=== PATIENT | male | born 2000 | race Two or more races ===

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

== ENCOUNTER 2023-11-20 19:32 | Emergency (ER) | payer MEDICAID ==
[~2023-11-20] VITALS: Ht 182.9 cm; Wt 106.6 kg
[2023-11-20 21:56] VITALS: BP 133/72; PULSE 77; RESP 16; TEMP 97.6; O2SAT 99
[2023-11-20] MEDS ORDERED: IBUP1TAB4 PO (22:07)
== END 2023-11-20 23:45 | disposition home or self-care (01) ==
LOC: ER 19:32 → EDBD 19:32 → ER 23:45
DX: S63.501A Unspecified sprain of right wrist, initial encounter (principal); S60.211A Contusion of right wrist, initial encounter; F12.90 Cannabis use, unspecified, uncomplicated; Z79.1 Long term (current) use of non-steroidal anti-inflammatories (NSAID); V89.2XXA Person injured in unspecified motor-vehicle accident, traffic, initial encounter; Y93.89 Activity, other specified; Y92.89 Other specified places as the place of occurrence of the external cause; Y99.8 Other external cause status
CPT/HCPCS: 29125; 73110; 73130

== ENCOUNTER 2024-04-06 15:36 | Emergency (ER) | payer MEDICAID, OTHER ==
[~2024-04-06] VITALS: Ht 182.9 cm; Wt 103.7 kg
[~2024-04-06 15:36] MED LIST: IBUP1TAB4 PO
--- NOTE | 2024-04-06 16:18 | ED.PDOC ---
History of Present Illness HPI Comments 23 y/o M presents with c/o puncture bite wound to right hand with associated pain, today. Patient endorses on being attacked and bitten by another person's dog, earlier, today. He comments on both being unsure of the vaccination status of the animal or how many years has it been since he last received a tetanus shot. Patient denies having any numbness, tingling, arm weakness, fever, chills, or other associated symptoms or modifiers at this time. Chief Complaint: Animal Bite Time Seen by MD: 16:00 Primary Care Provider: DR. TERRY Reviewed Notes: Nurses Notes, Medications, Allergies Allergies: Coded Allergies: NO KNOWN ALLERGIES (Unverified , 09/17/18) Home Meds Active Scripts Ibuprofen Micronized (Ibuprofen) 400 Mg Tab, 400 MG PO Q6HPRN, #30 TAB 0 Refills Prov:MASON DHALIWAL 11/20/23 Information Source: Patient Mode of Arrival: Ambulatory Severity: Moderate Timing: Hours Duration: Since onset Prehospital treatment: None Past Medical History Past Medical History (Other): obesity Surgical History: Denies all surgeries Family History Family History: Unknown Social History Smoker: Non-Smoker Alcohol: Denies ETOH Use Drugs: Marijuana Lives In: Home Musculoskeletal: reports: others (right hand pain secondary to puncture bite wound ) Integumetry: reports: wounds (right hand puncture bite wound ) All Other Systems: Reviewed and Negative (negative unless otherwise stated above or in HPI) Physical Exam General Appearance: No Apparent Distress, Obese HEENT: Normal ENT Inspection, Pharynx Normal, TMs Normal Neck: Full Range of Motion, Non-Tender, Normal, Normal Inspection Respiratory: Chest Non-Tender, Lungs Clear, No Accessory Muscle Use, No Respiratory Distress, Normal Breath Sounds Cardiovascular: No Edema, No JVD, No Murmur, No Gallop, Normal Peripheral Pulses, Regular Rate/Rhythm Breast Exam: Deferred Gastrointestinal: No Organomegaly, Non Tender, No Pulsatile Mass, Normal Bowel Sounds, Soft Genitalia: Deferred Pelvic: Deferred Rectal: Deferred Extremities: No calf tenderness, Normal capillary refill, Normal inspection, Normal range of motion, Non-tender, No pedal edema, Other (ROM and neurovascular system intact in right hand ) Musculoskeletal : Apperance: Normal Neurologic: Alert, rocket engine tester II-XII nml as Tested, No Motor Deficits, Normal Affect, Normal Mood, No Sensory Deficits Cerebellar Function: Normal Reflexes: Normal Skin: Dry, Normal Color, Warm, Wounds (puncture bite wound to the dorsal surface of right hand) Lymphatic: No Adenopathy Was a procedure done? Was a procedure done?: No Differential Dx Considerations may include: puncture bite wound X-Ray, Labs, Meds, VS Vital Signs Date Time Temp Pulse Resp B/P (MAP) Pulse Ox O2 Delivery O2 Flow Rate FiO2 04/06/24 15:55 98.7 74 18 147/98 (114) 99 Current Medications Medications (Trade) Dose Ordered Sig/Andrew Route Start Time Stop Time Status Last Admin Diphtheria/ Tetanus/Acell Pertussis (Boostrix T-Dap) 0.5 ml ONCE ONCE IM 04/06/24 16:30 04/06/24 16:31 DC 04/06/24 16:51 Time of 1ST Reevaluation: 16:30 Reevaluation 1ST: Unchanged Patient Education/Counseling: Diagnosis, Treatment Family Education/Counseling: No Family Present Departure 1 Departure Time of Disposition: 17:02 Impression: Primary Impression: Dog bite of dorsum of hand Disposition: 01 HOME / SELF CARE / HOMELESS Condition: Stable e-Prescriptions Amoxicillin & Pot Clavulanate (AUGMENTIN TABLET) 875 Mg Tb 875 MG PO BID for 7 Days, #14 TAB Prov: LYNDSEY CARIAS MD 04/06/24 Critical Care Note Critical Care Time?: No Stability Stability form required: No Heart Score Heart Score: Heart Score Response (Comments) Value History N/A 0 EKG N/A 0 Age N/A 0 Risk Factors N/A 0 Troponin N/A 0 Total 0 I personally scribed for LYNDSEY CARIAS MD ([email or web address]) on 04/06/24 at 16:18. Electronically submitted by Benigno Hays ([email or web address]). LYNDSEY CARIAS MD Apr 06, 2024 16:18
--- NOTE | 2024-04-06 16:48 | DVH ---
CLINICAL INFORMATION: 23 years old, Male; dog bite. TECHNIQUE: 3 views of the right hand were obtained. COMPARISON: XY R HAND 3 VIEW XRAY on DOS: 11/20/23 FINDINGS: No acute fracture or dislocation. No significant arthropathy. Adjacent soft tissues are unr emarkable. No radiopaque foreign body. IMPRESSION: No evidence of acute bony abnormality or radiopaque foreign body.
[2024-04-06] MEDS: TETANUS-DIPTH-ACEL PERTUSSIS 0.5ML SYR Tdap IM ONE (16:51)
[2024-04-06] MEDS ORDERED: AUG875T PO (17:03)
[2024-04-06 17:43] VITALS: BP 154/92; PULSE 76; RESP 16; TEMP 98.7; O2SAT 98
== END 2024-04-06 17:45 | disposition home or self-care (01) ==
LOC: ER 15:36
DX: S61.451A Open bite of right hand, initial encounter (principal); E66.9 Obesity, unspecified; W54.0XXA Bitten by dog, initial encounter; Y93.89 Activity, other specified; Y92.89 Other specified places as the place of occurrence of the external cause; Y99.8 Other external cause status
CPT/HCPCS: 73120; 90471; 90715

== ENCOUNTER 2024-08-12 14:12 | Emergency (ER) | payer MEDICAID ==
[~2024-08-12] VITALS: Ht 182.9 cm; Wt 107.9 kg
[~2024-08-12 14:12] MED LIST changes: +AUG875T PO
--- NOTE | 2024-08-12 15:40 | ED.PDOC ---
History of Present Illness HPI Comments 23 year old male presents to the ED with a chief compliant of RT sided facial numbness onset 2 days. Patient states he began experiencing tongue numbness 2 days ago as well as RT sided facial numbness. He woke up this morning, checked RT side of the lip was drooping, Rt eye was slow to blink, came to ED. Denies any PMHx as well as headache, dizziness, chest pain, nausea, vomiting, diarrhea, sore throat, cough, congestion, fever, chills. No other symptoms or modfiying factors present at this time. Chief Complaint: Right Sided Weakness Time Seen by MD: 15:28 Primary Care Provider: CHARLES Garcia Notes: Medications, Allergies Allergies: Coded Allergies: NO KNOWN ALLERGIES (Unverified , 09/17/18) Home Meds Active Scripts Amoxicillin & Pot Clavulanate (AUGMENTIN TABLET) 875 Mg Tb, 875 MG PO BID for 7 Days, #14 TAB Prov:LYNDSEY CARIAS MD 04/06/24 Ibuprofen Micronized (Ibuprofen) 400 Mg Tab, 400 MG PO Q6HPRN, #30 TAB 0 Refills Prov:MASON DHALIWAL 11/20/23 Information Source: Patient Mode of Arrival: Ambulatory Severity: Moderate Timing: Days Duration: Since onset Prehospital treatment: None Past Medical History PAST MEDICAL HISTORY: Denies Surgical History: Denies all surgeries Family History Family History: Family hx of stroke Social History Smoker: Non-Smoker Alcohol: Denies ETOH Use Drugs: Marijuana Lives In: Home Constitutional: denies: chills, diaphoresis, fatigue, fever, malaise, sweats, weakness, others EENTM: denies: blurred vision, double vision, ear bleeding, ear discharge, ear drainage, ear pain, ear ringing, eye pain, eye redness, hearing loss, mouth pain, mouth swelling, nasal discharge, nose bleeding, nose congestion, nose pain, photophobia, tearing, throat pain, throat swelling, voice changes, others Respiratory: denies: cough, hemoptysis, orthopnea, SOB at rest, shortness of breath, SOB with excertion, stridor, wheezing, others Cardiovascular: denies: chest pain, dizzy spells, diaphoresis, Dyspnea on exertion, edema, irregular heart beat, left arm pain, lightheadedness, palpitations, PND, syncope, others Gastrointestinal: denies: abdomen distended, abdominal pain, blood streaked bowels, constipated, diarrhea, dysphagia, difficulty swallowing, hematemesis, melena, nausea, poor appetite, poor fluid intake, rectal bleeding, rectal pain, vomiting, others Genitourinary: denies: burning, dysuria, flank pain, frequency, hematuria, in continence, penile discharge, penile sore, pain, testicle pain, testicle swelling, urgency, others Neurological: reports: numbness (tongue), right sided numbness; denies: dizziness, fainting, headache, left sided numbness, left sided weakness, paresthesia, pre-existing deficit, right sided weakness, seizure, speech pro blems, tingling, tremors, weakness, others Musculoskeletal: denies: back pain, gout, joint pain, joint swelling, muscle pain, muscle stiffness, neck pain, others Integumetry: denies: bruises, change in color, change in hair/nails, dryness, laceration, lesions, lumps, rash, wounds, others Allergic/Immunocompromised: denies: Difficulty Healing, Frequent Infections, Hives, Itching, others Hematologic/Lymphatic: denies: anemia, blood clots, easy bleeding, easy bruising, swollen glands, others Endocrine: denies: excessive hunger, excessive sweating, excessive thirst, excessive urination, flushing, intolerance to cold, intolerance to heat, unexplained weight gain, unexplained weight loss, others Psychiatric: denies: anxiety, bipolar disorder, depression, hopeless, panic disorder, schizophrenia, sleepless, suicidal, others All Other Systems: Reviewed and Negative Physical Exam General Appearance: No Apparent Distress, Normal HEENT: Normal ENT Inspection, Pharynx Normal, TMs Normal Neck: Full Range of Motion, Non-Tender, Normal, Normal Inspection Respiratory: Chest Non-Tender, Lungs Clear, No Accessory Muscle Use, No Respiratory Distress, Normal Breath Sounds Cardiovascular: No Edema, No JVD, No Murmur, No Gallop, Normal Peripheral Pulses, Regular Rate/Rhythm Breast Exam: Deferred Gastrointestinal: No Organomegaly, Non Tender, No Pulsatile Mass, Normal Bowel Sounds, Soft Genitalia: Deferred Pelvic: Deferred Rectal: Deferred Extremities: No calf tenderness, Normal capillary refill, Normal inspection, Normal range of motion, Non-tender, No pedal edema Musculoskeletal : Apperance: Normal Neurologic: Alert, Other (defecit on cranial nerve 5) Cerebellar Function: Normal Reflexes: Normal Skin: Dry, Normal Color, Warm Lymphatic: No Adenopathy Was a procedure done? Was a procedure done?: No Differential Dx Considerations may include: CVA, TIA, López's palsy X-Ray, Labs, Meds, VS Vital Signs Date Time Temp Pulse Resp B/P (MAP) Pulse Ox O2 Delivery O2 Flow Rate FiO2 08/12/24 14:42 97.6 67 18 145/92 (109) 97 97.6 Lab Test 08/12/24 14:38 Range/Units POC Glucose 102 70-106 mg/dl [address] [address] Ph: [phone] DIAGNOSTIC IMAGING Diagnostic Imaging Report : [id number] Signed PATIENT: NILTON KUMAR ACCT: [id number] UNIT: [id number] : 2000 LOC: ER ROOM / BED: / AGE / SEX: 23 / M ADM STATUS: REG ER SERVICE [id number] ORDERING PHYSICIAN: ROBIN TALLEY PROCEDURE(s): HWOCT - HEAD WITHOUT CONTRAST REASON: facial numbness ORDER NUMBER(s): [id number], ACCESSION NUMBER(s): [id number] CT brain without contrast CLINICAL INDICATION: facial numbness FINDINGS: The study was performed in a multidetector scanner. This study performed taking axial images from the skull base up to the vertex. Both brain and bone windows are photographed. Dose lowering techniques have been used including automated exposure control and adjustment of mA and/or KV according to patient size. Normal and symmetrical shape and density of brain parenchyma above and below the tentorium is seen. There is no mass, midline shift or hydrocephalus. No intra/extra-axial collections demonstrated. There is no intracranial hemorrhage. The calvarium is intact. IMPRESSION: 1. Normal brain and skull. Computed Tomographic Radiation Dosimetry Report: Total CTDI vol = 68.01mGy Total DLP = 1339.95mGy-cm All CT scans at this medical facility are performed using dose modulation techniques as appropriate to a performed exam including the following: Automated exposure control was utilized; adjustment of the MA and/or KvP according to patient size; and use of iterative reconstruction technique. ATED BY: HAYLEY CALERO MD DICTATED DATE/TIME: 08/12/241606 SIGNED BY: HAYLEY CALERO MD SIGNED DATE/TIME: 08/12/241606 CC: X-Ray, Labs, Meds, VS Comment Imaging: X-rays and CT scans were reviewed and interpreted by this provider, imaging shows no fractures and no pathological disease. Pending radiology review. Laboratory: Labs reviewed and interpreted by this provider. No significant abnormalities noted. Patient has prior medical visits reviewed. Med reconciliation performed Vital signs reviewed Time of 1ST Reevaluation: 15:58 Reevaluation 1ST: Unchanged Patient Education/Counseling: Diagnosis, Treatment, Prognosis, Need For Follow Up (Follow up in the ER in the next 24-48 hours if symptoms worse. Make appointment with PCP in the next 2-4 days.) Family Education/Counseling: No Family Present Departure 1 Departure Time of Disposition: 16:31 Impression: Primary Impression: López's palsy Disposition: 01 HOME / SELF CARE / HOMELESS Condition: Fair e-Prescriptions Prednisone (Prednisone) 20 Mg Tab 20 MG PO DAILY for 7 Days, #7 MG Prov: ROBIN TALLEYP 08/12/24 Discharged With: Self Critical Care Note Critical Care Time?: No Stability Stability form required: No I personally scribed for ROBIN TALLEY DOCUMENT IMAGING MANAGER ([email or web address]) on 08/12/24 at 15:40. Electronically submitted by Ludivina Borden ([email or web address]). I personally scribed for ROBIN TALLEY DOCUMENT IMAGING MANAGER ([email or web address]) on 08/12/24 at 16:19. Electronically submitted by Ludivina Borden ([email or web address]). ROBIN TALLEY DOCUMENT IMAGING MANAGER August 12, 2024 15:40
--- NOTE | 2024-08-12 16:10 | DVH ---
CT brain without contrast CLINICAL INDICATION: facial numbness FINDINGS: The study was performed in a multidetector scanner. This study performed taking axial image s from the skull base up to the vertex. Both brain and bone windows are photographed. Dose lowering techniques have been used including automated exposure control and adjustment of mA and /or KV according to patient size. Normal and symmetrical shape and density of brain parenchyma above and below the tentorium is seen. T here is no mass, midline shift or hydrocephalus. No intra/extra-axial collections demonstrated. There is no intracranial hemorrhage. The calvarium is intact. IMPRESSION: 1. Normal brain and skull. Computed Tomographic Radiation Dosimetry Report: Total CTDI vol = 68.01mGy Total DLP = 1339.95mGy-cm All CT scans at this medical facility are performed using dose modulation techniques as appropriate t o a performed exam including the following: Automated exposure control was utilized; adjustment of th e MA and/or KvP according to patient size; and use of iterative reconstruction technique.
[2024-08-12] MEDS ORDERED: PRED20TA2 PO (16:31)
[2024-08-12 16:52] VITALS: BP 167/81; PULSE 60; RESP 15; TEMP 99.3; O2SAT 97
== END 2024-08-12 16:55 | disposition home or self-care (01) ==
LOC: ER 14:21
DX: G51.0 Bell's palsy (principal); F12.90 Cannabis use, unspecified, uncomplicated; Z79.899 Other long term (current) drug therapy
CPT/HCPCS: 70450; 82947; 82962